=== PATIENT | female | born 1975 ===

== ENCOUNTER 2016-11-20 12:43 | Emergency (ER) | payer SELFPAY ==
[2016-11-20 13:55] LABS: PH,URINE 5.5 (4.7-8.0); URINE BILIRUBIN SMALL (NEGATIVE); URINE BLOOD LARGE (NEGATIVE); URINE GLUCOSE (UA) NEGATIVE (NEGATIVE); URINE KETONE TRACE mg/dL (NEGATIVE); URINE LEUKOCYTE ESTERASE TRACE Leu/uL (NEGATIVE); URINE PROTEIN >=300 mg/dL (<30 mg/dL)
[2016-11-20 13:59] LABS: URINE APPEARANCE CLOUDY (CLEAR); URINE COLOR RED (YELLOW)
[2016-11-20 14:02] LABS: URINE RBC TNTC /hpf (0-2)
--- NOTE | 2016-11-20 14:02 | ED PDOC ---
Arrival/HPI - General Historian: Patient - General Chief Complaint: Abdominal Pain Time Seen by Provider: 11/20/16 13:18 - History of Present Illness Narrative History of Present Illness (Text): 11/20/16 15:57 41 yo female , hx of ectopic #2, come in for evaluation of onset of vaginal bleeding last night, heavy. Pt sts, since today AM developed sharp suprapubic pain associated with heavy bleeding. Pt describes vaginal bleeding " noted it every time i go to bathroom urinate". Pt sts, last menstrual period was 09/30/16. Took test early today and it was positive. Otherwise, pt denies fever, chills, dizziness, CP, SOB, palpitation, vomiting, back pain. Ambulate to Ed for evaluation, appears in pain. (Francie Griffin) Past Medical History - Provider Review Nursing Documentation Reviewed: Yes - Travel History Have you recently traveled outside [place] w/in the past 3 mons?: No If Yes, travel location?: [facility] - Tetanus Immunization Tetanus Immunization: Unknown - Cardiac Hx Cardiac Disorders: No - Pulmonary Hx Respiratory Disorders: No - Neurological Hx Neurological Disorder: No - HEENT Hx HEENT Disorder: No - Renal Hx Renal Disorder: No - Endocrine/Metabolic Hx Endocrine Disorders: No - Hematological/Oncological Hx Blood Disorders: No - Integumentary Hx Dermatological Disorder: No - Musculoskeletal/Rheumatological Hx Musculoskeletal Disorders: No - Gastrointestinal Hx Gastrointestinal Disorders: No - Genitourinary/Gynecological Hx Genitourinary Disorders: Yes (ectopic ) - Psychiatric Hx Psychophysiologic Disorder: No Hx Substance Use: No - Patient History Narrative Patient History: Previous hx of ectopic (Francie Griffin) Family/Social History - Physician Review Nursing Documentation Reviewed: Yes Family/Social History: No Known Family HX Smoking Status: Never Smoked Hx Alcohol Use: No Hx Substance Use: No Allergies/Home Meds Allergies/Adverse Reactions: Allergies No Known Allergies Allergy (Verified 11/20/16 13:04) Home Medications: Home Meds Medication Instructions Recorded Confirmed No Known Home Med 11/28/16 11/28/16 Review of Systems - Review of Systems Constitutional: Normal Eyes: Normal ENT: Normal Respiratory: Normal Cardiovascular: Normal Gastrointestinal: Abdominal Pain Genitourinary Female: Vaginal Bleeding Musculoskeletal: Normal Skin: Normal Neurological: Normal Endocrine: Normal Hemo/Lymphatic: Normal Psychiatric: Normal Physical Exam Vital Signs Reviewed: Yes Temperature: Afebrile Blood Pressure: Normal Pulse: Regular Respiratory Rate: Normal Appearance: Positive for: Well-Appearing, Non-Toxic, Comfortable Pain Distress: Severe Mental Status: Positive for: Alert and Oriented X 3 - Systems Exam Conjunctiva: Present: Normal Mouth: Present: Moist Mucous Membranes. No: Drooling Neck: Present: Trachea Midline Respiratory/Chest: Present: Clear to Auscultation, Good Air Exchange. No: Respiratory Distress, Accessory Muscle Use Cardiovascular: Present: Regular Rate and Rhythm, Normal S1, S2. No: Murmurs Abdomen: Present: Normal Bowel Sounds. No: Tenderness, Distention, Peritoneal Signs, Rebound, Guarding Genitourinary/Pelvic Exam: No: Vaginal Bleeding Back: No: CVA Tenderness Upper Extremity: Present: Normal ROM. No: Deformity Lower Extremity: Present: Normal ROM, Neurovascularly Intact. No: Edema, Swelling, Deformity Neurological: Present: GCS=15, Speech Normal Skin: Present: Warm, Dry, Normal Color. No: Rashes Psychiatric: Present: Alert, Oriented x 3, Normal Insight, Normal Concentration Vital Signs Temp Pulse Resp BP Pulse Ox 11/20/16 17:15 98.3 F 73 18 116/54 L 100 11/20/16 15:10 61 18 118/75 99 11/20/16 12:55 98.7 F 64 15 120/78 99 Medical Decision Making ED Course and Treatment: 11/29/16 21:47 I was available for consultation during PA evaluation. The chart was reviewed by me, and I agree with disposition. The documented history was done by the physician industrial services worker. The documented physical exam was done by the physician industrial services worker. The documented procedures were done by the physician industrial services worker. (Aaron Frost) 11/20/16 After initial evaluation, pt was offered morphie, risk and harm to fetus explained via translation. Pt refused morphine and tylenol was given. During the ED course, pt had sporadic episodes of acute pain when pain medication was offered, pt refused " don't want to harm my baby". On re-eval at 16:01, pt appears stable, not in any apparent distress. Beta quant 4570 c/w 5wks Blood type: O positive ab negative. US results review Blood work appears normal. UA (+) nitrate. At 1610, US results discussed with radiologist, possible ectopic vs mass. case discussed with and transfer accepted. (Francie Griffin) - Lab Interpretations Microbiology Results: Microbiology Results 11/20/16 14:00 Urine,Clean Catch Urine Culture - Final No Growth (<1,000 CFU/ML) Lab Results: 11/20/16 14:27 11/20/16 14:27 Lab Results 11/20/16 15:18: Blood Type Confirm O POSITIVE 11/20/16 14:27: Sodium 139, Potassium 3.9, Chloride 103, Carbon Dioxide 25, Anion Gap 15, BUN 14, Creatinine 0.8, Est GFR ( Amer) > 60, Est GFR (Non- Af Amer) > 60, Random Glucose 90, Calcium 9.1 11/20/16 14:27: Blood Type O POSITIVE, Antibody Screen Negative, BBK History Checked No verified bt 11/20/16 14:27: Beta HCG, Quant 4570.50 H 11/20/16 14:27: WBC 8.3, RBC 4.44, Hgb 12.5, Hct 37.2, MCV 83.8, MCH 28.2, MCHC 33.6, RDW 14.9 H, Plt Count 309, MPV 8.6, Gran % 72.0 H, Lymph % (Auto) 20.3 L, Early % (Auto) 6.5 H, Eos % (Auto) 0.8 L, Baso % (Auto) 0.4, Gran # 5.98, Lymph # 1.7, Early # 0.5, Eos # 0.1, Baso # 0.03 11/20/16 13:44: Urine Color Red, Urine Appearance Cloudy, Urine pH 5.5, Ur Specific [place] >= 1.030, Urine Protein >=300 H, Urine Glucose (UA) Negative, Urine Ketones Trace H, Urine Blood Large H, Urine Nitrate Positive H, Urine Bilirubin Small H, Urine Urobilinogen 1.0 H, Ur Leukocyte Esterase Trace H, Urine RBC Tntc, Urine WBC 5 - 10, Ur Epithelial Cells 3 - 4, Urine Bacteria Mod , Urine HCG, Qual Positive - RAD Interpretation Radiology Orders: 11/20/16 13:58 OB TRANSVAGINAL [US] Stat Accession No. : [id number] Patient Name / ID : KERVIN NOLAN / [id number] Exam Date : 11/20/2016 15:21:46 ( Approved ) Study Comment : Sex / Age : F / [id number] Creator : Manav Tamayo MD Dictator : Manav Tamayo MD Hr Administrative Assistant : Medical Dir : Manav Tamayo MD Approver2 : Report Date : 11/20/2016 16:24:23 My Comment : HISTORY: abdominal pain, bleeding COMPARISON: patient presents with abdominal pain and spontaneous vaginal bleeding. TECHNIQUE: Transabdominal and transvaginal pelvic ultrasonography were performed. FINDINGS: UTERUS: Measures 8.0 x 4.3 x 5.1 cm. The uterus is retroverted on transvaginal ultrasonography and neutral in position transabdominally. No focal myometrial lesion is identified and the cervix is unremarkable the endometrium measures 11 mm and is homogeneous in overall echotexture. Note is made made of a mild amount of fluid primarily in the anterior cul-de-sac which is a cyst with a limited amount of debris. ENDOMETRIUM: Measures 11 mm in diameter. Homogeneous in echotexture and appears unremarkable. . CERVIX: No cervical abnormality identified. RIGHT OVARY: The right ovary is not clearly identified however there is a large masslike lesion at the right adnexal compartment measuring 8.5 x 4.6 by 5.0 cm with inhomogeneous parenchymal echotexture. Two small sub cm cystic foci are associated and there is fluid seen associated immediately cephalad to this lesion. No pole or yolk sac is seen associated with either of the cystic foci however given the lack of an intrauterine gestation, an ectopic gestation is not excluded versus potential neoplasm. LEFT OVARY: The left ovary is not identified however there is no suspicious left adnexal finding at this time. FREE FLUID: Discussed in evaluation of the right ovary. OTHER FINDINGS: None. IMPRESSION: No gestational sac is identified within the endometrial cavity. The endometrium is unremarkable appearing as well as the uterus. A masslike lesion in the right adnexal bar measure 8.5 cm potentially but not definitively representing an ectopic gestation. Differential diagnosis would be a malignant or benign mass with early nonvisualized intrauterine gestation potentially. Gestational failure with right adnexal mass is possible as well. Further clinical correlation is advised. Findings discussed with GEORGIA Griffin 11/20/2016, 16:15 p.m.. (Francie Griffin) - Medication Orders Current Medication Orders: Discontinued Medications Acetaminophen (Tylenol 325mg Tab) 975 mg PO STAT STA Stop: 11/20/16 16:46 Last Admin: 11/20/16 16:53 Dose: 975 mg Sodium Chloride (Sodium Chloride 0.9%) 1,000 mls @ 999 mls/hr IV .Q1H1M STA Stop: 11/20/16 15:03 Last Admin: 11/20/16 14:25 Dose: 999 mls/hr Ceftriaxone Sodium (Rocephin 1 Gram Ivpb) 1 gm in 100 mls @ 200 mls/hr IVPB STAT STA PRN Reason: Protocol Stop: 11/20/16 15:04 Last Admin: 11/20/16 14:53 Dose: 200 mls/hr Ondansetron HCl (Zofran Inj) 4 mg IVP ONCE ONE Stop: 11/20/16 14:38 Last Admin: 11/20/16 14:53 Dose: 4 mg Disposition/Present on Arrival - Present on Arrival Any Indicators Present on Arrival: No History of DVT/PE: No History of Uncontrolled Diabetes: No Urinary Catheter: No History of Decub. Ulcer: No History Surgical Site Infection Following: None - Disposition Have Diagnosis and Disposition been Completed?: Yes Disposition Time: 16:10 - Disposition Diagnosis: Ectopic , UTI (urinary tract infection) during Disposition: Transfer HUMU Condition: STABLE Referrals: PCP,NO [Primary Care Provider] - Follow up with primary Forms: Dopp[employer] (Spanish)
[2016-11-20] MEDS ORDERED: Sodium Chloride 0.9% 1,000 ML IV STA (14:03)
[2016-11-20] MEDS ORDERED: Morphine 2 mg/ml ISec IVP STA (14:03)
[2016-11-20 14:04] LABS: URINE BACTERIA MOD (NEG)
[2016-11-20 14:28] LABS: ADD MANUAL DIFF? NO
[2016-11-20 14:33] LABS: BASO # 0.03 K/mm3 (0.0-2.0); BASO % 0.4 % (0.0-3.0); EOS # 0.1 (0.0-0.7); EOS % 0.8 % (1.5-5.0); GRAN # 5.98 (1.4-6.5); HEMATOCRIT 37.2 % (36.0-48.0); LYMPH # 1.7 (1.2-3.4); LYMPH % 20.3 % (22.0-35.0); MEAN CELL VOLUME 83.8 fL (80.0-105.0); MEAN CORPUSCULAR HEMOGLOBIN 28.2 pg (25.0-35.0); MEAN CORPUSCULAR HGB CONC 33.6 g/dl (31.0-37.0); MEAN PLATELET VOLUME 8.6 fl (7.0-11.0); MONO # 0.5 (0.1-0.6); MONO % 6.5 % (1.0-6.0); PLATELET COUNT 309 10^3/uL (120.0-450.0); RED CELL DISTRIBUTION WIDTH 14.9 % (11.5-14.5); WHITE BLOOD COUNT 8.3 10^3/ul (4.5-11.0)
[2016-11-20] MEDS ORDERED: cefTRIAXone 1 gm 1 GM/100 ML BAG IVPB STA (14:35)
[2016-11-20 14:44] LABS: BLOOD UREA NITROGEN 14 mg/dL (7-21); CALCIUM 9.1 mg/dL (8.4-10.5); CARBON DIOXIDE 25 mmol/L (21-33); CHLORIDE 103 mmol/L (98-107); GFR AFRICAN-AMERICAN > 60; GLUCOSE,RANDOM 90 mg/dL (70-110); POTASSIUM 3.9 mmol/L (3.6-5.0); SODIUM 139 mmol/L (132-148)
[2016-11-20 15:11] VITALS: RESP 18
--- NOTE | 2016-11-20 16:25 | US ---
HISTORY: abdominal pain, bleeding COMPARISON: patient presents with abdominal pain and spontaneous vaginal bleeding. TECHNIQUE: Transabdominal and transvaginal pelvic ultrasonography were performed. FINDINGS: UTERUS: Measures 8.0 x 4.3 x 5.1 cm. The uterus is retroverted on transvaginal ultrasonography and neutral in position transabdominally. No focal myometrial lesion is identified and the cervix is unremarkable the endometrium measures 11 mm and is homogeneous in overall echotexture. Note is made made of a mild amount of fluid primarily in the anterior cul-de-sac which is a cyst with a limited amount of debris. ENDOMETRIUM: Measures 11 mm in diameter. Homogeneous in echotexture and appears unremarkable. . CERVIX: No cervical abnormality identified. RIGHT OVARY: The right ovary is not clearly identified however there is a large masslike lesion at the right adnexal compartment measuring 8.5 x 4.6 by 5.0 cm with inhomogeneous parenchymal echotexture. Two small sub cm cystic foci are associated and there is fluid seen associated immediately cephalad to this lesion. No pole or yolk sac is seen associated with either of the cystic foci however given the lack of an intrauterine gestation, an ectopic gestation is not excluded versus potential neoplasm. LEFT OVARY: The left ovary is not identified however there is no suspicious left adnexal finding at this time. FREE FLUID: Discussed in evaluation of the right ovary. OTHER FINDINGS: None. IMPRESSION: No gestational sac is identified within the endometrial cavity. The endometrium is unremarkable appearing as well as the uterus. A masslike lesion in the right adnexal bar measure 8.5 cm potentially but not definitively representing an ectopic gestation. Differential diagnosis would be a malignant or benign mass with early nonvisualized intrauterine gestation potentially. Gestational failure with right adnexal mass is possible as well. Further clinical correlation is advised. Findings discussed with GEORGIA Griffin 11/20/2016, 16:15 p.m..
[2016-11-20 17:16] VITALS: BP 116/54; PULSE 73; TEMP 98.3; O2SAT 100
== END 2016-11-20 17:22 | disposition short-term general hospital (02) ==
LOC: ED 12:43
DX: O00.90 Unspecified ectopic pregnancy without intrauterine pregnancy (principal); O08.83 Urinary tract infection following an ectopic and molar pregnancy
CPT/HCPCS: 76817; 80048; 81001; 84702; 84703; 85025; 86850; 86900; 87086; 96365; 96375; 99284; J0696; J2405; J7040

== ENCOUNTER 2016-11-28 08:17 | Emergency (ER) | payer OTHER ==
[2016-11-28 08:25] VITALS: BMI 28.5
--- NOTE | 2016-11-28 08:47 | ED PDOC ---
Arrival/HPI - General Historian: Patient, Spouse - History of Present Illness Time/Duration: > week Symptom Course: Improving Activities at Onset: Other Context: Home <Susana Hackett - Last Filed: 11/28/16 09:37> <Stewart Lai - Last Filed: 11/28/16 11:17> - General Chief Complaint: Abdominal Pain Time Seen by Provider: 11/28/16 08:38 - History of Present Illness Narrative History of Present Illness (Text): 11/28/16 08:44 41 year old female with past medical history of ectopic that patient had surgically removed is suppose to be seen today at [facility]. However, pt does no have insurance and was sent here. No abd pain, no N/V/D/C, no discharge or bleeding for incision site. (Susana Hackett) Past Medical History - Provider Review Nursing Documentation Reviewed: Yes - Travel History Have you recently traveled outside [place] w/in the past 3 mons?: No - Past History Past History: No Previous - Tetanus Immunization Tetanus Immunization: Unknown - Cardiac Hx Cardiac Disorders: No - Pulmonary Hx Respiratory Disorders: No - Neurological Hx Neurological Disorder: No - HEENT Hx HEENT Disorder: No - Renal Hx Renal Disorder: No - Endocrine/Metabolic Hx Endocrine Disorders: No - Hematological/Oncological Hx Blood Disorders: No - Integumentary Hx Dermatological Disorder: No - Musculoskeletal/Rheumatological Hx Musculoskeletal Disorders: No - Gastrointestinal Hx Gastrointestinal Disorders: No - Genitourinary/Gynecological Hx Genitourinary Disorders: Yes (ectopic ) - Psychiatric Hx Psychophysiologic Disorder: No Hx Substance Use: No - Anesthesia Hx Anesthesia: Yes <Susana Hackett - Last Filed: 11/28/16 09:37> Family/Social History Family/Social History: Unknown Family HX Smoking Status: Never Smoked Hx Alcohol Use: No Hx Substance Use: No <Susana Hackett - Last Filed: 11/28/16 09:37> - Physician Review Nursing Documentation Reviewed: Yes <Stewart Lai - Last Filed: 11/28/16 11:17> Allergies/Home Meds <Susana Hackett - Last Filed: 11/28/16 09:37> <Stewart Lai - Last Filed: 11/28/16 11:17> Allergies/Adverse Reactions: Allergies No Known Allergies Allergy (Verified 08/01/17 13:04) Home Medications: Home Meds Medication Instructions Recorded Confirmed No Known Home Med 11/28/16 11/28/16 Review of Systems - Review of Systems Constitutional: absent: Fatigue, Fevers ENT: Normal. absent: Sore Throat, Rhinorrhea Respiratory: Normal. absent: SOB, Cough Cardiovascular: Normal. absent: Chest Pain, Calf Pain Gastrointestinal: Other (suprapubic incision noted ). absent: Abdominal Pain, Constipation, Diarrhea, Nausea Genitourinary Female: Normal. absent: Dysuria, Frequency, Hematuria Skin: absent: Rash, Pruritis Neurological: Normal. absent: Headache, Dizziness Psychiatric: Normal. absent: Anxiety, Depression <Susana Hackett - Last Filed: 11/28/16 09:37> - Physician Review All systems were reviewed & negative as marked: Yes <Stewart Lai - Last Filed: 11/28/16 11:17> Physical Exam Vital Signs Reviewed: Yes Temperature: Afebrile Blood Pressure: Normal Pulse: Regular Respiratory Rate: Normal Appearance: Positive for: Well-Appearing, Non-Toxic, Comfortable Pain Distress: None Mental Status: Positive for: Alert and Oriented X 3 - Systems Exam Pupils: Present: PERRL Extroacular Muscles: Present: EOMI Conjunctiva: Present: Normal Mouth: Present: Moist Mucous Membranes Respiratory/Chest: Present: Clear to Auscultation, Good Air Exchange. No: Respiratory Distress, Accessory Muscle Use, Wheezes, Rales, Rhonchi Cardiovascular: Present: Regular Rate and Rhythm, Normal S1, S2. No: Murmurs Abdomen: Present: Normal Bowel Sounds. No: Tenderness, Distention, Peritoneal Signs Lower Extremity: No: Edema, CALF TENDERNESS Neurological: Present: GCS=15 Skin: Present: Warm, Dry, Normal Color. No: Rashes Psychiatric: Present: Alert, Oriented x 3, Normal Insight, Normal Concentration <Susana Hackett - Last Filed: 11/28/16 09:37> Medical Decision Making <Susana Hackett - Last Filed: 11/28/16 09:37> <Stewart Lai - Last Filed: 11/28/16 11:17> ED Course and Treatment: 11/28/16 09:34 41 y/o female presents for suture removal. Steri-strips are removed. Non- dissolvable sutures are cut. Patient is told to follow up with [facility]. (Susana Hackett) 11/28/16 09:19 41 yo female presents for suture removal s/p ectopic surgery by Dr. Brandon. She was not accepted at the clinic she states because of her insurance. Abdominal exam: suprapubic healing surgical scare. no tenderness, redness or drainage. No foul odor. There is steri strips removed with a noted area of 2.5 cm dehiscense. I discussed the case with Dr. Brandon who explained that we can remove the sutures as he instructed by cutting each side and leaving the absorbable suture inside. He said we can use wet to dry gauze to the mild dehiscence of her wound. Patient will follow up with the clinic. 11/28/16 09:44 Patient Seen With Resident: In agreement with resident note which contains more details about the patient. Patient was seen and evaluated with resident. Came up with plan and treatment together. (Stewart Lai) Disposition/Present on Arrival - Present on Arrival Any Indicators Present on Arrival: No History of DVT/PE: No History of Uncontrolled Diabetes: No Urinary Catheter: No History of Decub. Ulcer: No History Surgical Site Infection Following: None - Disposition Have Diagnosis and Disposition been Completed?: Yes Patient Plan: Discharge <Susana Hackett - Last Filed: 11/28/16 09:37> - Present on Arrival Any Indicators Present on Arrival: No - Disposition Have Diagnosis and Disposition been Completed?: Yes Disposition Time: 09:29 Patient Plan: Discharge <Stewart Lai - Last Filed: 11/28/16 11:17> - Disposition Diagnosis: Visit for suture removal Disposition: HOME/ ROUTINE Condition: GOOD Additional Instructions: Ade Donahue, thank you for letting us take care of you today. Your provider was Dr. Susana Hackett. You were treated for suture removal. The emergency medical care you received today was directed at your acute symptoms. If you were prescribed any medication, please fill it and take as directed. It may take several days for your symptoms to resolve. Return to the Emergency Department if your symptoms worsen, do not improve, or if you have any other problems. Please contact your doctor or call one of the physicians/clinics you have been referred to that are listed on the Patient Visit Information form that is included in your discharge packet. Bring any paperwork you were given at discharge with you along with any medications you are taking to your follow up visit. Our treatment cannot replace ongoing medical care by a primary care provider (PCP) outside of the emergency department. Thank you for allowing the [facility] team to be part of your care today. If you had an X-Ray or CT scan: A Radiologist will review the ED reading if any change in treatment is needed we will contact you. If you had a blood, urine, or wound culture: It will take several days for the results, if any change in treatment is needed we will contact you. If you had an STI test: It will take 48 hours for the results. Please call after 1 week if you have not heard back. Forms: Funding Profiles ([place]an)
[2016-11-28 09:41] VITALS: BP 116/76; PULSE 76; RESP 18; TEMP 98; O2SAT 99
== END 2016-11-28 09:47 | disposition home or self-care (01) ==
LOC: ED 08:17
DX: Z48.02 Encounter for removal of sutures (principal)